=== PATIENT | male | born 1995 | race African-American/Black ===

== ENCOUNTER → 2016-12-10 10:52 | Outpatient (CLI) | payer OTHER | END | disposition home or self-care (01) | LOC: D.RAD 10:30 | DX: Z02.71 Encounter for disability determination (principal) ==

== ENCOUNTER 2017-03-08 18:40 | Emergency (ER) | payer MEDICAID | END 2017-03-08 21:15 | disposition home or self-care (01) | LOC: D.ER 18:40 | DX: L21.9 Seborrheic dermatitis, unspecified (principal); H01.009 Unspecified blepharitis unspecified eye, unspecified eyelid; M54.6 Pain in thoracic spine; M41.9 Scoliosis, unspecified; F17.200 Nicotine dependence, unspecified, uncomplicated ==

== ENCOUNTER 2017-03-13 22:17 | Emergency (ER) | payer MEDICAID ==
[2017-03-13 23:13] LABS: APPEARANCE CLEAR (CLEAR); BACTERIA FEW /hpf (NONE SEEN); BILIRUBIN NEGATIVE (NEGATIVE); COLOR YELLOW (YELLOW); EPITHELIAL CELLS NSEEN /hpf (0-5); GLUCOSE NEGATIVE (NEGATIVE); KETONE NEGATIVE (NEGATIVE); NITRITE NEGATIVE (NEGATIVE); PROTEIN NEGATIVE (NEGATIVE); RED CELLS - URINE OCC /hpf (0-5); UROBILINOGEN NORMAL (NORMAL); WHITE CELLS - URINE 0-5 /hpf (0-5)
== END 2017-03-13 23:30 | disposition home or self-care (01) ==
LOC: D.ER 22:17
PROVIDERS: Family Medicine
DX: N39.0 Urinary tract infection, site not specified (principal); F17.200 Nicotine dependence, unspecified, uncomplicated

== ENCOUNTER 2017-04-05 16:46 | Emergency (ER) | payer MEDICAID | END 2017-04-05 18:25 | disposition home or self-care (01) | LOC: D.ER 16:46 | DX: H10.32 Unspecified acute conjunctivitis, left eye (principal); J30.9 Allergic rhinitis, unspecified ==